=== PATIENT | male | born 1975 | race Caucasian/White ===

== ENCOUNTER 2020-10-26 16:06 | Emergency (ER) | payer BC ==
[~2020-10-26] VITALS: Ht 180.3 cm; Wt 83.9 kg
[2020-10-26] MEDS ORDERED: CO Q-10 100 MG1 EACH PO (16:27)
[2020-10-26] MEDS ORDERED: OMEPRAZOLE 20 M20 M1 PO (16:27)
[2020-10-26] MEDS ORDERED: D3-200050 MCG PO (16:28)
[2020-10-26] MEDS ORDERED: B12 ACTIVE1000 MCG PO (16:28)
[2020-10-26] MEDS ORDERED: FISH OIL 1,0001 EAC9 PO (16:28)
[2020-10-26 16:44] LABS: ABSOLUTE EOSINOPHILS 0.3 thou/uL (0.0-0.7); ABSOLUTE LYMPHOCYTES 1.6 thou/uL (0.8-5.3); ABSOLUTE MONOCYTES 0.4 thou/uL (0.0-1.2); ABSOLUTE NEUTROPHILS 2.1 thou/uL (1.6-8.1); BASOPHILS 0.9 %; EOSINOPHILS 5.8 %; HEMOGLOBIN 14.4 gm/dL (14.0-18.0); LYMPHOCYTES 36.7 %; MCH 28.3 pg (26.0-34.0); MCHC 33.5 g/dL (28.0-37.0); MCV 84.4 fL (80.0-100.0); MONOCYTES 9.5 %; MPV 6.4 fl. (7.2-11.1); NUCLEATED RBCS 0 /100WBC; PLATELET COUNT* 252 thou/uL (150-400); POLYS 47.1 %; RBC 5.09 mil/uL (4.50-6.00); RDW-CV 13.1 % (10.5-14.5); WBC 4.5 thou/uL (4.0-11.0)
[2020-10-26 16:46] LABS: URINE BILIRUBIN NEGATIVE (Negative); URINE BLOOD NEGATIVE (Negative); URINE CLARITY CLEAR; URINE COLOR YELLOW; URINE GLUCOSE-RANDOM NEGATIVE (Negative); URINE KETONES NEGATIVE (Negative); URINE LEUKOCYTES-REFLEX NEGATIVE (Negative); URINE NITRITE-REFLEX NEGATIVE (Negative); URINE PROTEIN NEGATIVE (Negative); URINE SPECIFIC GRAVITY >= 1.030 (1.005-1.030); URINE UROBILINOGEN 0.2 E.U./dl (0.2-1.0)
[2020-10-26 17:12] LABS: ALBUMIN 3.9 g/dL (3.4-5.0); CALCIUM 9.1 mg/dL (8.5-10.1); CREATININE 1.3 mg/dL (0.6-1.3); TOTAL BILIRUBIN 0.4 mg/dL (<0.1-1.0); TOTAL PROTEIN 7.4 g/dL (6.4-8.2)
[2020-10-26] MEDS ORDERED: CARAFATE1 GM PO (18:14)
[2020-10-26 18:25] VITALS: BP 121/70
--- NOTE | 2020-10-27 09:27 | EKG ---
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 : 1975 Requested By: Alon Andres Order Number: [id number] MD: Emerson Walter Measurements Intervals [place] Rate: 75 P: 25 [place]: 131 QRS: 8 QRSD: 97 T: 32 QT: 370 QTc: 414 Interpretive Statements Sinus rhythm Baseline wander in lead(s) II,III,aVF No previous ECG available for comparison Electronically Signed On 10-27-2020 9:27:17 [employer] APPRAISER by Emerson Walter [email or web address] <ELECTRONICALLY SIGNED> By: Emerson Walter MD, [facility] 10/27/2027 1646 1646 Emerson Walter MD, [facility] /EPI
== END 2020-10-26 18:25 | disposition home or self-care (01) ==
LOC: M.ERS 16:06
PROVIDERS: Emergency Medicine Emergency Medical Services
DX: K29.70 Gastritis, unspecified, without bleeding (principal); K21.9 Gastro-esophageal reflux disease without esophagitis; Z87.442 Personal history of urinary calculi; Z79.899 Other long term (current) drug therapy; Z88.1 Allergy status to other antibiotic agents